=== PATIENT | male | born 1940 | race Caucasian/White ===

== ENCOUNTER → 2019-12-30 | Outpatient (CLI) | payer MEDICARE ==
[~2019-12-30] MED LIST: ALLERCLEAR10 MG PO; AMLO5 PO; Benazepril HCl40 MG PO; CEPH500 PO; FINA5 PO; LOTREL; Rapaflo8 MG PO; Vesicare10 MG PO; [UNRECOGNIZED DRUG - OTHER] PO; [UNRECOGNIZED DRUG - REMARK]
== END | disposition home or self-care (01) ==
LOC: PLD 14:57 → LAB SHORT 14:57
DX: D48.5 Neoplasm of uncertain behavior of skin (principal)
CPT/HCPCS: 88305

== ENCOUNTER 2022-12-06 10:51 | Emergency (ER) | payer MEDICARE ==
[~2022-12-06] VITALS: Ht 175.3 cm; Wt 72.6 kg
[2022-12-06 11:07] VITALS: BP 139/65
== END 2022-12-06 12:04 | disposition home or self-care (01) ==
LOC: ER 10:51
DX: M71.9 Bursopathy, unspecified (principal); I10 Essential (primary) hypertension; Z88.8 Allergy status to other drugs, medicaments and biological substances; Z79.899 Other long term (current) drug therapy
CPT/HCPCS: 73502; 96372; 99283-25; J1885

== ENCOUNTER 2022-12-31 12:00 | Observation (INO) | payer MEDICARE ==
[~2022-12-31] VITALS: Ht 172.7 cm; Wt 73.9 kg
[2022-12-31] MEDS ORDERED: ATORVASTATIN CA20 MG PO (12:25)
[2022-12-31] MEDS ORDERED: ATOR10 PO ×2 (12:25)
[2022-12-31 12:26] LABS: BASOPHILS ABSOLUTE AUTO 0.03 K/mm3 (0.00-0.23); BASOPHILS PERCENT AUTO 1 % (0-2); EOSINOPHILS PERCENT AUTO 2 % (0-6); Hematocrit 41.8 % (37.0-53.0); Hemoglobin 14.9 g/dL (13.5-17.5); IMMATURE GRAN ABSOLUTE AUTO 0.04 K/mm3 (0.00-0.10); IMMATURE GRAN PERCENT AUTO 1 % (0-1); LYMPHOCYTES ABSOLUTE AUTO 1.56 K/mm3 (0.84-5.20); LYMPHOCYTES PERCENT AUTO 25 % (21-46); MONOCYTES ABSOLUTE AUTO 0.96 K/mm3 (0.16-1.47); MONOCYTES PERCENT AUTO 15 % (4-13); Mean Corpuscular HGB Conc 35.6 g/dL (31.5-36.5); Mean Corpuscular Volume 93 fL (80-100); Mean Platelet Volume 9.7 fL (9.1-12.4); NEUTROPHILS ABSOLUTE AUTO 3.54 K/mm3 (1.96-9.15); NEUTROPHILS PERCENT AUTO 57 % (41-73); Platelet Count 176 K/mm3 (150-400); RDW Coefficient Variation 13.2 % (11.7-14.2); RDW Standard Deviation 45.1 fL (35.1-46.3); Red Blood Cell Count 4.51 M/mm3 (4.30-5.90); White Blood Cell Count 6.23 K/mm3 (4.00-11.30)
[2022-12-31] MEDS ORDERED: PLAVIX75 MG PO ×2 (12:36)
[2022-12-31 12:38] LABS: Albumin, Blood 3.5 g/dL (3.4-5.0); Albumin/Globulin Ratio 1.1 (0.8-1.8); Bun/Creatinine Ratio 25.6 (12.0-20.0); Calcium, Blood 8.6 mg/dL (8.5-10.1); Creatinine, Blood 0.78 mg/dL (0.60-1.20); Globulin, Blood 3.1 g/dL (2.2-4.0); Potassium, Blood 3.5 mmol/L (3.5-5.5); Total Protein, Blood 6.6 g/dL (6.4-8.2)
[2022-12-31 16:48] VITALS: BP 117/67
[2022-12-31] MEDS ORDERED: ERGO400 PO ×2 (17:03)
[2022-12-31] MEDS ORDERED: FISH OIL 1,2001 EAC7 PO ×2 (17:03)
[2022-12-31 17:45] LABS: Source, Urine Clean Catch
[2022-12-31 17:48] LABS: Appearance, Urine Clear (Clear); Bilirubin, Urine Neg (Neg); Blood, Urine Neg (Neg); Color, Urine Yellow (P-Yellow); Glucose Qualitative, Urine Neg (Neg); Ketones, Urine Neg (Neg); Leukocyte Esterase, Urine Neg (Neg); Nitrite, Urine Neg (Neg); Protein, Urine 1+ (Neg); Urobilinogen, Urine NORM (Normal)
[2022-12-31 18:02] LABS: U Amphetamine Screen Not Detected; U Barbituate Screen Not Detected; U Benzodiazapine Screen Not Detected; U Buprenorphine Screen Not Detected; U Cannabinoids Screen Not Detected; U Cocaine Screen Not Detected; U Methadone Screen Not Detected; U Methamphetamine Screen Not Detected; U Opiates Screen DETECTED; U Oxycodone Screen Not Detected; U Phencyclidine Screen Not Detected; U Propoxyphene Screen Not Detected
--- NOTE | 2022-12-31 18:49 | NUR ---
SHIFT SUMMARY-ADMIT ADMITTED TO THE FLOOR ABOUT 1700, IV'S IN PLACE AND SL, FORGETFUL COGNITION AT THIS TIME. CALM DEMEANOR. C/O HEADACHE, DOC ORDERED TYLENOL. FIRE SAFETY EDUCATION COMPLETE, NO SOURCES OF IGNITION VISITORS DENY THE SAME.
[2022-12-31 20:57] VITALS: BP 111/66
[2023-01-01 02:42] VITALS: BP 121/67
--- NOTE | 2023-01-01 05:29 | NUR ---
SHIFT SUMMARY PT GIVEN TYLENOL X1 FOR HEADACHE, REPORTED RELIEF WITH TYLENOL. NO SEIZURES REPORTED OR OBSERVED OVERNIGHT, PT AT BEDSIDE ENTIRE SHIFT. Q1H FIRE SAFETY CHECKS COMPLETED.
[2023-01-01 05:38] LABS: BASOPHILS ABSOLUTE AUTO 0.03 K/mm3 (0.00-0.23); BASOPHILS PERCENT AUTO 1 % (0-2); EOSINOPHILS PERCENT AUTO 2 % (0-6); Hematocrit 38.2 % (37.0-53.0); Hemoglobin 13.6 g/dL (13.5-17.5); IMMATURE GRAN ABSOLUTE AUTO 0.01 K/mm3 (0.00-0.10); IMMATURE GRAN PERCENT AUTO 0 % (0-1); LYMPHOCYTES ABSOLUTE AUTO 1.19 K/mm3 (0.84-5.20); LYMPHOCYTES PERCENT AUTO 18 % (21-46); MONOCYTES PERCENT AUTO 12 % (4-13); Mean Corpuscular HGB 33.3 pg (26.0-34.0); Mean Corpuscular HGB Conc 35.6 g/dL (31.5-36.5); Mean Corpuscular Volume 94 fL (80-100); Mean Platelet Volume 9.8 fL (9.1-12.4); NEUTROPHILS ABSOLUTE AUTO 4.49 K/mm3 (1.96-9.15); NEUTROPHILS PERCENT AUTO 68 % (41-73); Platelet Count 158 K/mm3 (150-400); RDW Coefficient Variation 13.2 % (11.7-14.2); RDW Standard Deviation 45.3 fL (35.1-46.3); Red Blood Cell Count 4.08 M/mm3 (4.30-5.90); White Blood Cell Count 6.62 K/mm3 (4.00-11.30)
[2023-01-01 06:16] LABS: Albumin, Blood 3.1 g/dL (3.4-5.0); Albumin/Globulin Ratio 1.1 (0.8-1.8); Bilirubin, Total 0.7 mg/dL (0.1-1.0); Bun/Creatinine Ratio 22.9 (12.0-20.0); Calcium, Blood 8.5 mg/dL (8.5-10.1); Creatinine, Blood 0.87 mg/dL (0.60-1.20); Globulin, Blood 2.8 g/dL (2.2-4.0); Magnesium, Blood 2.3 mg/dL (1.6-2.4); Phosphorus, Blood 3.5 mg/dL (2.5-4.9); Thyroid Stimulating Hormone 0.653 uIU/mL (0.360-4.800); Total Protein, Blood 5.9 g/dL (6.4-8.2)
--- NOTE | 2023-01-01 07:30 | NUR ---
ASSUMED CARE: PT RESTING QUIETLY IN BED. 1ST DEGREE HB AT 51 ON TELE. FAMILY AT BEDSIDE. DENIES NEEDS OR CONCERNS. DR KONG INSTRUCTED TO GET PT UP OUT OF BED AND AMBULATING AND IF PT FEELS COMFORTABLE WITH IT, CAN BE DISCHARGED LATER TODAY. PT AGREEABLE TO THIS PLAN.
[2023-01-01 07:42] VITALS: BP 125/64
--- NOTE | 2023-01-01 10:07 | NUR ---
PT'S FAMILY ASKING TO SPEAK WITH DR KONG. CALL TO DR KONG TO LET HIM KNOW THAT PT GOT UP INTO CHAIR, AMBULATED WITH WALKER SAFELY AND WITHOUT SAFETY CONCERNS. STATES HE WILL BE UP IN A FEW MINUTES TO SPEAK WITH THEM AND GET HIM DISCHARGED HOME. FAMILY AND PT AGREEABLE TO THIS PLAN
[2023-01-01] MEDS ORDERED: LEVE500 PO ×2 (10:59)
[2023-01-01] MEDS ORDERED: Sanctura20 MG PO ×2 (11:00)
--- NOTE | 2023-01-01 11:37 | NUR ---
DISCHARGE: PT GIVEN INSTRUCTIONS REGARDING NO DRIVING, TO SET UP FOLLOW UP APPOINTMENT WITH PCP AND TO ASK PCP ABOUT NEUROLOGY F/U. IVS DC'D WNL. DENIED FURTHER QUESTION OR CONCERNS. ESCORTED OUT VIA WHEEL CHAIR BY HOSPITAL STAFF
[2023-01-12] MEDS ORDERED: HYDR1TAB94 PO (12:33)
[2023-01-13] MEDS ORDERED: ATOR40TA PO (09:33)
== END 2023-01-01 11:35 | disposition home or self-care (01) ==
LOC: ER 12:00 → SURS 14:32 → MEDS 16:41 → ENPENDDIS 01-01 11:07 → MEDS 01-01 11:35
PROVIDERS: Emergency Medicine; ADMIT Family Medicine
DX: R56.9 Unspecified convulsions (principal); I10 Essential (primary) hypertension; N40.0 Benign prostatic hyperplasia without lower urinary tract symptoms; E78.5 Hyperlipidemia, unspecified; Z88.2 Allergy status to sulfonamides; Z88.6 Allergy status to analgesic agent; Z79.899 Other long term (current) drug therapy
CPT/HCPCS: 36415; 70450; 80053; 82533; 82947; 83735; 84100; 84443; 84484; 85025; 93005; 93010; 96365; 96372; 96375; 99285-25; A9270; G0378; J1650; J1953; J2405

== ENCOUNTER 2023-01-08 11:58 | Emergency (ER) | payer MEDICARE ==
[~2023-01-08] VITALS: Ht 175.3 cm; Wt 72.6 kg
[~2023-01-08 11:58] MED LIST changes: +ATOR10 PO; +ATORVASTATIN CA20 MG PO; +ERGO400 PO; +FISH OIL 1,2001 EAC7 PO; +LEVE500 PO; +PLAVIX75 MG PO; +Sanctura20 MG PO
[2023-01-08 14:52] LABS: BASOPHILS ABSOLUTE AUTO 0.03 K/mm3 (0.00-0.23); BASOPHILS PERCENT AUTO 0 % (0-2); EOSINOPHILS ABSOLUTE AUTO 0.12 K/mm3 (0.00-0.68); EOSINOPHILS PERCENT AUTO 1 % (0-6); Hematocrit 38.9 % (37.0-53.0); IMMATURE GRAN ABSOLUTE AUTO 0.02 K/mm3 (0.00-0.10); IMMATURE GRAN PERCENT AUTO 0 % (0-1); LYMPHOCYTES ABSOLUTE AUTO 0.92 K/mm3 (0.84-5.20); LYMPHOCYTES PERCENT AUTO 11 % (21-46); MONOCYTES ABSOLUTE AUTO 1.24 K/mm3 (0.16-1.47); MONOCYTES PERCENT AUTO 15 % (4-13); Mean Corpuscular Volume 94 fL (80-100); Mean Platelet Volume 9.5 fL (9.1-12.4); NEUTROPHILS ABSOLUTE AUTO 6.02 K/mm3 (1.96-9.15); NEUTROPHILS PERCENT AUTO 72 % (41-73); Platelet Count 144 K/mm3 (150-400); RDW Standard Deviation 47.9 fL (35.1-46.3); Red Blood Cell Count 4.12 M/mm3 (4.30-5.90); White Blood Cell Count 8.35 K/mm3 (4.00-11.30)
[2023-01-08 15:07] LABS: Albumin, Blood 3.2 g/dL (3.4-5.0); Albumin/Globulin Ratio 1.1 (0.8-1.8); Bun/Creatinine Ratio 19.6 (12.0-20.0); Calcium, Blood 8.4 mg/dL (8.5-10.1); Creatinine, Blood 0.87 mg/dL (0.60-1.20); Potassium, Blood 4.5 mmol/L (3.5-5.5); Total Protein, Blood 6.2 g/dL (6.4-8.2)
[2023-01-08 15:15] VITALS: BP 142/68
[2023-01-08] MEDS ORDERED: Prednisone10 MG PO (17:40)
[2023-01-12] MEDS ORDERED: HYDR1TAB94 PO (12:33)
[2023-01-13] MEDS ORDERED: ATOR40TA PO (09:33)
== END 2023-01-08 18:16 | disposition home or self-care (01) ==
LOC: ER 11:58
PROVIDERS: Emergency Medicine
DX: M51.26 Other intervertebral disc displacement, lumbar region (principal); R20.2 Paresthesia of skin; I10 Essential (primary) hypertension; N40.1 Benign prostatic hyperplasia with lower urinary tract symptoms; R33.8 Other retention of urine; K59.89 Other specified functional intestinal disorders; E78.5 Hyperlipidemia, unspecified; Z88.8 Allergy status to other drugs, medicaments and biological substances; Z79.899 Other long term (current) drug therapy; Z79.02 Long term (current) use of antithrombotics/antiplatelets
CPT/HCPCS: 72158; 74018; 80053; 85025; 99284-25; A9579; J7512

== ENCOUNTER 2023-01-12 03:50 | Inpatient (IN) | payer MEDICARE | END 2023-01-13 10:46 | disposition home or self-care (01) | DRG 65 | LOC: ER 03:50 → ERHOLD 03:51 → ICUE 09:15 | PROVIDERS: ADMIT Internal Medicine | DX: I63.9 Cerebral infarction, unspecified (principal); G81.94 Hemiplegia, unspecified affecting left nondominant side; I62.9 Nontraumatic intracranial hemorrhage, unspecified; R56.9 Unspecified convulsions; I10 Essential (primary) hypertension; E78.5 Hyperlipidemia, unspecified; N40.0 Benign prostatic hyperplasia without lower urinary tract symptoms; R47.81 Slurred speech; M19.90 Unspecified osteoarthritis, unspecified site; Z88.8 Allergy status to other drugs, medicaments and biological substances; Z79.899 Other long term (current) drug therapy; Z88.6 Allergy status to analgesic agent; Z90.89 Acquired absence of other organs; Z98.890 Other specified postprocedural states; Z98.52 Vasectomy status ==

== ENCOUNTER 2023-01-18 18:41 | Emergency (ER) | payer MEDICARE ==
[~2023-01-18] VITALS: Ht 182.9 cm; Wt 73.9 kg
[~2023-01-18 18:41] MED LIST changes: +ATOR40TA PO; +HYDR1TAB94 PO; +Prednisone10 MG PO
[2023-01-18 19:09] LABS: BASOPHILS ABSOLUTE AUTO 0.04 K/mm3 (0.00-0.23); BASOPHILS PERCENT AUTO 1 % (0-2); EOSINOPHILS ABSOLUTE AUTO 0.12 K/mm3 (0.00-0.68); EOSINOPHILS PERCENT AUTO 2 % (0-6); Hematocrit 38.6 % (37.0-53.0); Hemoglobin 13.6 g/dL (13.5-17.5); IMMATURE GRAN ABSOLUTE AUTO 0.02 K/mm3 (0.00-0.10); IMMATURE GRAN PERCENT AUTO 0 % (0-1); LYMPHOCYTES ABSOLUTE AUTO 1.14 K/mm3 (0.84-5.20); LYMPHOCYTES PERCENT AUTO 15 % (21-46); MONOCYTES ABSOLUTE AUTO 1.03 K/mm3 (0.16-1.47); MONOCYTES PERCENT AUTO 13 % (4-13); Mean Corpuscular HGB 33.3 pg (26.0-34.0); Mean Corpuscular HGB Conc 35.2 g/dL (31.5-36.5); Mean Corpuscular Volume 94 fL (80-100); Mean Platelet Volume 9.5 fL (9.1-12.4); NEUTROPHILS ABSOLUTE AUTO 5.47 K/mm3 (1.96-9.15); NEUTROPHILS PERCENT AUTO 70 % (41-73); Platelet Count 171 K/mm3 (150-400); RDW Coefficient Variation 13.9 % (11.7-14.2); Red Blood Cell Count 4.09 M/mm3 (4.30-5.90); White Blood Cell Count 7.82 K/mm3 (4.00-11.30)
[2023-01-18 19:41] LABS: Albumin, Blood 3.4 g/dL (3.4-5.0); Albumin/Globulin Ratio 1.1 (0.8-1.8); Bilirubin, Total 0.9 mg/dL (0.1-1.0); Calcium, Blood 8.7 mg/dL (8.5-10.1); Creatinine, Blood 0.86 mg/dL (0.60-1.20); Potassium, Blood 4.3 mmol/L (3.5-5.5); Total Protein, Blood 6.4 g/dL (6.4-8.2)
[2023-01-18 20:41] LABS: Magnesium, Blood 2.4 mg/dL (1.6-2.4)
[2023-01-18 21:10] LABS: Source, Urine Clean Catch
[2023-01-18 21:14] LABS: Appearance, Urine Hazy (Clear); Bilirubin, Urine Neg (Neg); Blood, Urine Neg (Neg); Color, Urine Yellow (P-Yellow); Glucose Qualitative, Urine Neg (Neg); Ketones, Urine Neg (Neg); Leukocyte Esterase, Urine Neg (Neg); Nitrite, Urine Neg (Neg); Protein, Urine Neg (Neg); Specific Gravity, Urine 1.015 (1.003-1.022); Urobilinogen, Urine NORM (Normal); pH, Urine 6.5 (5.0-8.0)
[2023-01-18 21:42] LABS: Bacteria Many /hpf; Red Blood Cells, Urine 0-2 /hpf (0-2); Squamous Epithelial Cells Not Seen /hpf (Few)
[2023-01-18 22:25] VITALS: BP 132/75
[2023-01-18] MEDS ORDERED: CEPH500 PO (22:46)
== END 2023-01-18 23:10 | disposition home or self-care (01) ==
LOC: ER 18:41
PROVIDERS: Physician Assistant; Student in an Organized Health Care Education/Training Program
DX: R47.81 Slurred speech (principal); N39.0 Urinary tract infection, site not specified; Z88.6 Allergy status to analgesic agent; Z88.8 Allergy status to other drugs, medicaments and biological substances; Z79.899 Other long term (current) drug therapy; I10 Essential (primary) hypertension; E78.5 Hyperlipidemia, unspecified; M19.90 Unspecified osteoarthritis, unspecified site
CPT/HCPCS: 70450; 80053; 81001; 83735; 85025; 87086; 93005; 93010; 96365; 99285-25; J0696

== ENCOUNTER 2023-01-22 15:21 | Inpatient (IN) | payer MEDICARE ==
[~2023-01-22] VITALS: Ht 172.7 cm; Wt 71.2 kg
[2023-01-22 16:24] LABS: Albumin, Blood 3.8 g/dL (3.4-5.0); Albumin/Globulin Ratio 1.2 (0.8-1.8); Bilirubin, Total 1.2 mg/dL (0.1-1.0); Bun/Creatinine Ratio 18.7 (12.0-20.0); Calcium, Blood 8.9 mg/dL (8.5-10.1); Creatinine, Blood 0.96 mg/dL (0.60-1.20); Globulin, Blood 3.1 g/dL (2.2-4.0); Potassium, Blood 4.6 mmol/L (3.5-5.5); Total Protein, Blood 6.9 g/dL (6.4-8.2)
[2023-01-22 16:24] LABS: BASOPHILS ABSOLUTE AUTO 0.04 K/mm3 (0.00-0.23); BASOPHILS PERCENT AUTO 1 % (0-2); EOSINOPHILS ABSOLUTE AUTO 0.09 K/mm3 (0.00-0.68); EOSINOPHILS PERCENT AUTO 2 % (0-6); Hematocrit 35.2 % (37.0-53.0); Hemoglobin 12.7 g/dL (13.5-17.5); IMMATURE GRAN ABSOLUTE AUTO 0.01 K/mm3 (0.00-0.10); IMMATURE GRAN PERCENT AUTO 0 % (0-1); LYMPHOCYTES ABSOLUTE AUTO 0.96 K/mm3 (0.84-5.20); LYMPHOCYTES PERCENT AUTO 16 % (21-46); MONOCYTES ABSOLUTE AUTO 1.11 K/mm3 (0.16-1.47); MONOCYTES PERCENT AUTO 19 % (4-13); Mean Corpuscular HGB 33.9 pg (26.0-34.0); Mean Corpuscular HGB Conc 36.1 g/dL (31.5-36.5); Mean Corpuscular Volume 94 fL (80-100); Mean Platelet Volume 9.6 fL (9.1-12.4); NEUTROPHILS ABSOLUTE AUTO 3.73 K/mm3 (1.96-9.15); NEUTROPHILS PERCENT AUTO 63 % (41-73); Platelet Count 168 K/mm3 (150-400); RDW Coefficient Variation 14.2 % (11.7-14.2); RDW Standard Deviation 47.5 fL (35.1-46.3); Red Blood Cell Count 3.75 M/mm3 (4.30-5.90); White Blood Cell Count 5.94 K/mm3 (4.00-11.30)
[2023-01-23] VITALS (38 sets, daily range): BP systolic 121–168; BP diastolic 63–93
[2023-01-23 00:01] LABS: International Normalized Ratio 1.19; Prothrombin Time Results 12.4 Sec (9.7-11.5)
--- NOTE | 2023-01-23 02:50 | NUR ---
ARRIVAL TO ICU PT [facility] PT ALERT, TRACKING STAFF AND FOLLOWING MOST COMMANDS. PT UNABLE TO ANSWER ORIENTATION QUESTIONS D/T WORD SALAD. THIS RN ABLE TO UNDERSTAND APPROX 1 OUT OF 10 WORDS. EQUAL STRENGTH IN BILATERAL EXTREMITIES. NO FACIAL DROP NOTED. VSS. ON RA. SR RATE 60'S. GOAL SBP UNDER 150'S. RIGHT LEG NOTED TO COOLER THEN LEFT WITH FAINT PULSES. HOSP CALLED AND ORDERS RECEIVED FOR VENOUS DUPLEX IN AM. PT SUDDENLY STARTED MOANING AND STATED 'HELP'. PT ATTEMPTING TO PULL PANTS DOWN AND WAS ABLE TO VOID 20MLS URINE. POST VOID SCAN 267MLS. PT CALMED AFTER VOIDED. BED ALARM ON. CALL LIGHT IN REACH.
[2023-01-23 04:21] LABS: BASOPHILS ABSOLUTE AUTO 0.03 K/mm3 (0.00-0.23); BASOPHILS PERCENT AUTO 0 % (0-2); EOSINOPHILS ABSOLUTE AUTO 0.05 K/mm3 (0.00-0.68); EOSINOPHILS PERCENT AUTO 1 % (0-6); Hematocrit 39.7 % (37.0-53.0); Hemoglobin 14.3 g/dL (13.5-17.5); IMMATURE GRAN ABSOLUTE AUTO 0.03 K/mm3 (0.00-0.10); IMMATURE GRAN PERCENT AUTO 0 % (0-1); LYMPHOCYTES ABSOLUTE AUTO 0.99 K/mm3 (0.84-5.20); LYMPHOCYTES PERCENT AUTO 12 % (21-46); MONOCYTES ABSOLUTE AUTO 1.15 K/mm3 (0.16-1.47); MONOCYTES PERCENT AUTO 14 % (4-13); Mean Corpuscular HGB 33.3 pg (26.0-34.0); Mean Corpuscular Volume 93 fL (80-100); Mean Platelet Volume 9.8 fL (9.1-12.4); NEUTROPHILS PERCENT AUTO 73 % (41-73); Platelet Count 192 K/mm3 (150-400); RDW Coefficient Variation 13.8 % (11.7-14.2); RDW Standard Deviation 46.5 fL (35.1-46.3); Red Blood Cell Count 4.29 M/mm3 (4.30-5.90); White Blood Cell Count 8.25 K/mm3 (4.00-11.30)
[2023-01-23 04:49] LABS: Albumin, Blood 3.4 g/dL (3.4-5.0); Bilirubin, Total 1.5 mg/dL (0.1-1.0); Bun/Creatinine Ratio 15.2 (12.0-20.0); Calcium, Blood 8.7 mg/dL (8.5-10.1); Creatinine, Blood 0.79 mg/dL (0.60-1.20); Globulin, Blood 3.3 g/dL (2.2-4.0); Potassium, Blood 3.9 mmol/L (3.5-5.5); Total Protein, Blood 6.7 g/dL (6.4-8.2)
--- NOTE | 2023-01-23 06:23 | NUR ---
SHIFT SUMMARY NO ACUTE EVENTS T/O NIGHT. PT REMAINS ALERT AND COOPERATIVE WITH CARE. PT IS ABLE TO SPEAK A BIT CLEARER THIS AM. ABLE TO SAY YES, NO, AND OKAY. NO OTHER NEURO CHANGES NOTED. VSS. HAS NOT REQUIRED ANY PRN HTN MEDICATIONS. PT WAS INCONT OF URINE X 1 THIS AM. ABLE TO TURN SELF [id number] AND UP IN BED WITH PROMPTING. BED ALARM REMAINS ON. CALL LIGHT IN REACH. WILL REPORT OFF TO ONCOMING RN.
--- NOTE | 2023-01-23 08:53 | NUR ---
CARE OF PT ASSUMED AT 0700. PT RESTING IN BED, AWAKE. ABLE TO STATE NAME IF GIVEN TIME. UNABLE TO STATE WHERE HE IS AT. SOME MILD SLURRED SPEECH NOTED AT TIMES. PT IS ABLE TO FORM SOME SENTANCES THAT ARE MORE CLEAR AND APPROPRIATE. PT ASKED IF HE WAS GOING HOME. PT DOES APPEAR CONFUSED, ATTEMPTING TO GET OUT OF BED SEVERAL TIMES WITHIN MINUTES. PT ABLE TO FOLLOW DIRECTIONS BUT IS DELAYED IN RESPONSE TIME. PT IS STRONG/EQUAL TO ALL EXTREMITIES. SMILE IS SYMMETRICAL, PUPILS 3/3MM EQUAL AND REACTIVE. PT'S AT BEDSIDE.
--- NOTE | 2023-01-23 09:09 | NUR ---
PT USING WORD SALAD TO COMMUNICATE SOMETHING URGENTLY. WHEN I ASKED IF HE NEEDED TO USE THE RESTROOM HE STATED CLEARLY, "YOU BET I DO, THANK YOU SO MUCH". PT ASSISTED W URINAL.
--- NOTE | 2023-01-23 10:23 | NUR ---
DR KONG IN TO SEE PT. 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 SBA TO BATHROOM FOR XLARGE BM.
--- NOTE | 2023-01-23 11:49 | NUR ---
PT USED CALL LIGHT APPROPRIATELY, AND ALTHOUGH THE PT STILL HAS WORD SALAD/EXPRESSIVE APHAGIA HE WAS ABLE TO CONVEY THAT HE NEEDED TO USE THE URINAL.
--- NOTE | 2023-01-23 14:00 | NUR ---
DR MARIE SPOKE WITH NEUROLOGIST AT [facility], THEY WILL NOT BE ACCEPTING PATIENT AT THIS TIME PATIENT DOES NOT REQUIRE HIGHER LEVEL OF CARE. PT MEDICAL STATUS W TELE. SPEECH ORDERED. DR MARIE IS SPEAKING WITH FAMILY NOW TO GIVE THEM AN UPDATE.
--- NOTE | 2023-01-23 17:39 | NUR ---
STOCK BUYER TRANSFERED PT UP TO ROOM 345 IN STABLE CONDITION VIA WHEELCHAIR. WALKED UP W PT. NO CHANGE IN NEURO ASSESSMENT THIS SHIFT.
[2023-01-24 05:20] VITALS: BP 101/65
--- NOTE | 2023-01-24 05:21 | NUR ---
SHIFT SUMMARY PATIENT ALERT, WORD SALAD WHEN ATTEMPTING VERBAL COMMUNICATION. FOLLOWS MOST COMMANDS. UP SBA TO BR, PATIENT STRONG BUT GAIT A LITTLE UNSTEADY. MUSICAL ENGINEER EQUAL. IMPULSIVE AT TIMES, BED ALARM ON. PATIENT NPO PENDING SPEECH EVAL. PLEASANT AND COOPERATIVE WITH CARE.
[2023-01-24 10:03] VITALS: BP 113/69
--- NOTE | 2023-01-24 13:56 | NUR ---
Spoke with Dr Esteban Womack and discussed case. Family appeared to be a little apprhensive regarding D/C plan and Pt's wishes regarding code status. Pt resting in bed with his eyes closed. Pt appears comfortable with no S/S of distress at this time. Pt remains with his eyes closed throughout visit. Pt's spouse Luna at bedside. Engaged in therapeutic conversation and supportive listening. Discussed potential D/C plan with spouse. Luna appears to have processes information and a little more comfortable with plan. Engaged in gentle discussion regarding advanced care planning and planning for the future. Educated on disease process and the potential need to have caregiver support for Pt in the future. Spouse reports already has started planning. Discussed Pt's code status wishes as Pt indicated to staff earlier wishes of DNR. Spouse confirms Pt's wishes for DNR and states attempting to convince Pt in completing advanced directive in the past. Continued therapeutic listening. Placed JEANINE order for Pt in [place] per V/O from Dr Orellana. Plan: F/U with Pt when he is awake to discuss completing POLST. Palliative Care will remain available
--- NOTE | 2023-01-24 16:02 | NUR ---
DAYSHIFT SUMMARY Patient alert x oriented 2-3, difficulty expressing self, word salad. SHAKE SPLITTER evaluated patient & ordered puree diet & precaution orders. Patient worked with PT/OT today, did very well ambulating will FWW, therapy recommending DC home. Barium swallow planned for the afternoon, SHAKE SPLITTER call & reported change in condition, patient unable to swallow now. MD notified, instructed to do neuro checks Q2H for 6 hours. SHAKE SPLITTER & pallaliative care met with patient and family. Patient will remain in hospital overnight. [facility] came and applied zio patch, continous telemetry in place. No events this shift. Plan to DC home with the Zio patch for 30 days per neurology. Vitals stable, Will continue plan of care.
[2023-01-24 16:04] VITALS: BP 104/67
--- NOTE | 2023-01-24 16:49 | NUR ---
Joint visit this afternoon with [facility] and this RN with Pt. Spouse and daughter at bedside. [facility] discusses findings with Pt and family. Pt is recommended NPO at this time. Questions answered and therapeutic listening offered. Discussed potential options of alternate nutrition if NPO status continues to be recommended. Discussed the importance of planning for the future based off Pt's goals and values. Pt attempts to respond to the conversation and struggles with making sense. Pt also attempts to write his responses with gibberish writing. Continued therapeutic conversations. Family expresses appreciation and report no other concerns at this time. Palliative Care will remain available
--- NOTE | 2023-01-24 18:44 | NUR ---
Neuro checks: pupils equal and reactive, follows direction, no facial dropping noted. Speech continues to be garbled, unable to understand what patient is saying. ROM WNL, minimal assitance with ambulation, uses FWW, needs redirection at times for safety.
[2023-01-24 21:28] VITALS: BP 114/71
--- NOTE | 2023-01-25 02:22 | NUR ---
END OF SHIFT SUMMARY PT WEAK AND UNSTEADY WITH TRANSFERS ON NOC SHIFT, FWW AND GB FOR SAFETY. PT A&O x1, TO SELF. SCHEDULED KEPPRA IV ADMINISTERED. PT'S SPEECH DIFFICULT TO UNDERSTAND, USED PEN AND PAPER TO COMMUNICATE WITH PT. NO C/O PAIN. BED IN LOWEST POSITION, BED ALARM ON PT IS IMPULSIVE AND TRIED TO GET OUT OF BED ON HIS OWN. CALL LIGHT WITHIN REACH, [facility].
[2023-01-25] MEDS ORDERED: Sanctura20 MG PO (03:33)
[2023-01-25 05:30] VITALS: BP 104/88
[2023-01-25 08:07] VITALS: BP 96/65
--- NOTE | 2023-01-25 10:15 | NUR ---
Pt sitting in recliner chair upon arrival. Pt's spouse Luna at bedside. Initially Pt is a little more clear with verbal responses. 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 Pt appears to be agreeable to NG tube but as conversation continued his speach became more unclear. Unsure of his wishes are for PEG tube. He appeared to be inquiring about how long he would need a PEG tube. Instructed length of time is pending progression of rehabilitation with ST. Family will continue conversation after Pt has oppurtunity to rest. Spoke with Primary RN Lois and discussed case. Palliative Care will remain available
--- NOTE | 2023-01-25 14:37 | NUR ---
Spoke with Dr Orellana and discussed case. Pt and family may benefit from assistance with completing POLST today. Pt resting in bed upon arrival. Pt's spouse Luna, son Cesar, and daughter Vj at bedside. Engaged in therapeutic conversation regarding completing POLST. Educated on life sustaining measures including risks and implications to CPR. Pt appears confused and does not respond regarding topic of POLST and code status. He instead attempts conversation regarding [place] and [facility] but most of his speech is mumbled and non sensical. Family reports not being confident in his understanding today and yesterday's conversation with staff regarding his code status wishes. They agree Pt should be changed back to Full Code until confusion has cleared. Ended visit. Spoke with RN Tire Manager Lisandra and discussed case. Placed order for Pt in [place] for Full Code per V/O from Dr Orellana. Palliative Care will remain available
[2023-01-25 15:12] LABS: BASOPHILS ABSOLUTE AUTO 0.03 K/mm3 (0.00-0.23); BASOPHILS PERCENT AUTO 1 % (0-2); EOSINOPHILS ABSOLUTE AUTO 0.07 K/mm3 (0.00-0.68); EOSINOPHILS PERCENT AUTO 1 % (0-6); Hematocrit 37.1 % (37.0-53.0); Hemoglobin 13.8 g/dL (13.5-17.5); IMMATURE GRAN ABSOLUTE AUTO 0.02 K/mm3 (0.00-0.10); IMMATURE GRAN PERCENT AUTO 0 % (0-1); LYMPHOCYTES PERCENT AUTO 15 % (21-46); MONOCYTES ABSOLUTE AUTO 1.25 K/mm3 (0.16-1.47); MONOCYTES PERCENT AUTO 19 % (4-13); Mean Corpuscular HGB 34.1 pg (26.0-34.0); Mean Corpuscular HGB Conc 37.2 g/dL (31.5-36.5); Mean Corpuscular Volume 92 fL (80-100); Mean Platelet Volume 9.5 fL (9.1-12.4); NEUTROPHILS ABSOLUTE AUTO 4.12 K/mm3 (1.96-9.15); NEUTROPHILS PERCENT AUTO 63 % (41-73); Platelet Count 190 K/mm3 (150-400); RDW Coefficient Variation 14.5 % (11.7-14.2); RDW Standard Deviation 47.8 fL (35.1-46.3); Red Blood Cell Count 4.05 M/mm3 (4.30-5.90); White Blood Cell Count 6.49 K/mm3 (4.00-11.30)
[2023-01-25 15:35] LABS: Albumin, Blood 3.2 g/dL (3.4-5.0); Albumin/Globulin Ratio 1.1 (0.8-1.8); Bilirubin, Total 1.6 mg/dL (0.1-1.0); Bun/Creatinine Ratio 25.7 (12.0-20.0); Calcium, Blood 8.5 mg/dL (8.5-10.1); Creatinine, Blood 0.86 mg/dL (0.60-1.20); Potassium, Blood 3.8 mmol/L (3.5-5.5); Total Protein, Blood 6.2 g/dL (6.4-8.2)
[2023-01-25 16:26] VITALS: BP 120/72
--- NOTE | 2023-01-25 17:51 | NUR ---
DAYSHIFT SUMMARY Patient alert & oriented x3, continues to have difficulty with verbal communication, he is able to make eye contact, follows commands. Palliative care at bedside discussing care with family, patients son is at bedside today, family discussion involved changing POLST from DNR back to Full code status. Plan is to insert Dobhoff tube for enteral nutrition. Tube inserted taped at 57in. verified placement with chest xray. Dietitian spoke with patient & ordered tube feedings. SENIOR TECHNICAL TRAINER assessed patient at bedside, no changes in plan, continue NPO. Plan is to administred feeds, and reevaluate swallowing in a few days. Patient calling appropriate, waiting for staff before getting OOB to walk to BR. No impulsive behavior this shift. Vitals stable. Will continue plan of care.
--- NOTE | 2023-01-26 00:04 | NUR ---
PT PULLED OUT DOBHOFF, PROVIDER NOTIFIED, ORDERS FOR IV FLUIDS STARTED, CONTINUE POC
[2023-01-26 03:03] VITALS: BP 105/67
--- NOTE | 2023-01-26 05:05 | NUR ---
SHIFT SUMMARY PT IS A&O3 FORGETFUL AND IMPULSIVE OVERNIGHT ATTEMPTING TO OOB UNSAFELY, PT IS REDIRECTABLE, APHASIA AND WORD SALAD STILL PRESENT DURING ASSESSMENT, PT PULLED OUT DOBHOFF THIS SHIFT PROVIDER NOTIFIED, ORDERS TO START IV FLUIDS AND WAIT FOR DAY TEAM, NO COMPLAINTS OF PAIN OR DISCOMFORT, CONTINUE POC
[2023-01-26 06:06] LABS: Calcium, Blood 8.3 mg/dL (8.5-10.1); Creatinine, Blood 0.83 mg/dL (0.60-1.20); Magnesium, Blood 2.3 mg/dL (1.6-2.4); Phosphorus, Blood 3.8 mg/dL (2.5-4.9); Potassium, Blood 3.7 mmol/L (3.5-5.5)
[2023-01-26 08:11] VITALS: BP 110/67
[2023-01-26 14:33] LABS: BASOPHILS ABSOLUTE AUTO 0.02 K/mm3 (0.00-0.23); BASOPHILS PERCENT AUTO 0 % (0-2); EOSINOPHILS PERCENT AUTO 2 % (0-6); Hematocrit 39.5 % (37.0-53.0); Hemoglobin 14.6 g/dL (13.5-17.5); IMMATURE GRAN ABSOLUTE AUTO 0.01 K/mm3 (0.00-0.10); IMMATURE GRAN PERCENT AUTO 0 % (0-1); LYMPHOCYTES ABSOLUTE AUTO 1.07 K/mm3 (0.84-5.20); LYMPHOCYTES PERCENT AUTO 19 % (21-46); MONOCYTES ABSOLUTE AUTO 1.01 K/mm3 (0.16-1.47); MONOCYTES PERCENT AUTO 18 % (4-13); Mean Corpuscular HGB 33.6 pg (26.0-34.0); Mean Corpuscular Volume 91 fL (80-100); Mean Platelet Volume 9.3 fL (9.1-12.4); NEUTROPHILS ABSOLUTE AUTO 3.34 K/mm3 (1.96-9.15); NEUTROPHILS PERCENT AUTO 60 % (41-73); Platelet Count 182 K/mm3 (150-400); RDW Coefficient Variation 14.5 % (11.7-14.2); Red Blood Cell Count 4.34 M/mm3 (4.30-5.90); White Blood Cell Count 5.55 K/mm3 (4.00-11.30)
[2023-01-26 15:05] VITALS: BP 115/74
[2023-01-26 15:06] LABS: Albumin, Blood 3.2 g/dL (3.4-5.0); Bilirubin, Total 1.3 mg/dL (0.1-1.0); Bun/Creatinine Ratio 21.1 (12.0-20.0); Calcium, Blood 8.3 mg/dL (8.5-10.1); Creatinine, Blood 0.81 mg/dL (0.60-1.20); Globulin, Blood 3.2 g/dL (2.2-4.0); Total Protein, Blood 6.4 g/dL (6.4-8.2)
--- NOTE | 2023-01-26 15:13 | NUR ---
01/26/[address] SNEED; SEE ANESTHESIA RECORDS.
[2023-01-26 16:35] VITALS: BP 128/79
[2023-01-26 17:12] VITALS: BP 136/73
--- NOTE | 2023-01-26 19:07 | NUR ---
SHIFT SUMMARY: PT A&O X4. PT PLEASANT AND COOPERATIVE WITH ALL CARE. PT HAD WORD SALAD FIRST FEW HOURS OF SHIFT. ABOUT MID SHIFT PT STARTED MAKING SENSE OF WORDS AND ABLE TO HAVE APPROPRIATE CONVERSATION WITH HIM, HIS , AND DAUGHTER. PT WORKED WITH PT/OT/ST TODAY. PT SIGNIFICANTLY IMPROVED WITH ALL THERAPIES. PT RECEIVED PEG TUBE THIS SHIFT. FEEDINGS TO BE STARTED AT 0800 TOMORROW. NO C/O PAIN OR N/V. BILAT ARM IV'S BAD THIS SHIFT. NEW IV PLACED BY DAY SURGERY. IN LFA. PT IS CALLING APPROPRIATELY FOR ALL NEEDS. PT APPEARS TO BE SIGNIFICANTLY IMPROVING. CALL LIGHT IN REACH. BED IN LOWEST POSITION. REPORT GIVEN TO ONCOMING RN.
[2023-01-26 19:40] VITALS: BP 148/98
[2023-01-27 03:30] VITALS: BP 123/70
--- NOTE | 2023-01-27 05:49 | NUR ---
PT IS A&O2-3, CONFUSED BUT REORIENTABLE, PEG TUBE DRESSING CDI, RA, VSS, PT IMPULSIVE AT TIMES TRYING TO OOB WITHOUT CALLING FOR HELP, IV FLUIDS INFUSING, PT STILL EXPERIENCING APHASIA AND WORD SALAD, PEG TUBE FEEDING TO START TODAY, NO ACUTE OVERNIGHT EVENTS, CONTINUE POC
[2023-01-27 07:09] VITALS: BP 111/74
[2023-01-27 15:12] VITALS: BP 117/72
[2023-01-27 15:20] LABS: BASOPHILS ABSOLUTE AUTO 0.03 K/mm3 (0.00-0.23); BASOPHILS PERCENT AUTO 1 % (0-2); EOSINOPHILS ABSOLUTE AUTO 0.11 K/mm3 (0.00-0.68); EOSINOPHILS PERCENT AUTO 2 % (0-6); Hematocrit 34.3 % (37.0-53.0); Hemoglobin 12.7 g/dL (13.5-17.5); IMMATURE GRAN ABSOLUTE AUTO 0.04 K/mm3 (0.00-0.10); IMMATURE GRAN PERCENT AUTO 1 % (0-1); LYMPHOCYTES ABSOLUTE AUTO 1.06 K/mm3 (0.84-5.20); LYMPHOCYTES PERCENT AUTO 16 % (21-46); MONOCYTES ABSOLUTE AUTO 0.94 K/mm3 (0.16-1.47); MONOCYTES PERCENT AUTO 15 % (4-13); Mean Corpuscular HGB 33.4 pg (26.0-34.0); Mean Corpuscular Volume 90 fL (80-100); Mean Platelet Volume 9.3 fL (9.1-12.4); NEUTROPHILS ABSOLUTE AUTO 4.31 K/mm3 (1.96-9.15); NEUTROPHILS PERCENT AUTO 66 % (41-73); Platelet Count 166 K/mm3 (150-400); RDW Coefficient Variation 14.3 % (11.7-14.2); RDW Standard Deviation 47.3 fL (35.1-46.3); White Blood Cell Count 6.49 K/mm3 (4.00-11.30)
[2023-01-27 15:36] LABS: Albumin, Blood 2.9 g/dL (3.4-5.0); Bilirubin, Total 1.2 mg/dL (0.1-1.0); Bun/Creatinine Ratio 13.7 (12.0-20.0); Calcium, Blood 8.4 mg/dL (8.5-10.1); Creatinine, Blood 0.73 mg/dL (0.60-1.20); Globulin, Blood 2.9 g/dL (2.2-4.0); Potassium, Blood 3.4 mmol/L (3.5-5.5); Total Protein, Blood 5.8 g/dL (6.4-8.2)
--- NOTE | 2023-01-27 16:06 | NUR ---
Spiritual Care Visit. Pt. is awake in bed. Spouse is present and welcomes my visit. Pt. has a difficult time speaking because of his condition. Facilitate a life review using the spouse to communicate. Pt. is pleasant. Establish rapport using common community connections. Pt. displays evidence of engagement and awareness. Prayed for Pt. Pt. (nonverbally) and spouse (verbally) communicate gratitude for the spiritual care visit.
--- NOTE | 2023-01-27 17:02 | NUR ---
SHIFT SUMMARY: PT A&O X3 THIS SHIFT. PT NOT CLEAR OF SPEECH PREVIOUS DAY SHIFT BUT IS ABLE TO COMMUNICATE NEEDS VERBALLY AND USES CALL LIGHT APPROPRIATELY. PT GIVEN WHITE BOARD AND MARKER THIS AM WHICH WAS ABLE TO HELP COMMUNICATE W/FAMILY. PT WALKED WITH THIS RN TWICE AROUND MEDICAL FLOOR W/ WALKER AND GB W/O COMPLICATIONS. PT AND FAMILY APPRECIATIVE OF WALK. CONTINUOUS FEED STARTED THROUGH PEG TUBE THIS AM STARTING @20ML/HR. PT TOLERATED FEEDING WELL. FEEDING CURRENTLY AT A RATE OF 35ML/HR AND WILL INCREASE THOUGHOUT THE EVENING IF ABLE TO CONTINUE TOLERATING. Q4 FEEDINGS TO START TOMORROW @0800. PER DIETARY, RECOMMEND STOP CONTINUOUS FLUIDS AT THIS POINT DUE TO FLUSHES W/FEEDINGS. CALL LIGHT IN REACH. BED IN LOWEST POSITION. WILL CONTINUE TO MONITOR.
[2023-01-27 20:09] VITALS: BP 125/71
--- NOTE | 2023-01-28 00:07 | NUR ---
IMAGES PUSHED TO [facility] PER DR NUNEZ REQUEST- NURSE NOTIFY WAS PLACED THIS AFTERNOON TO SEND RECORDS TO [facility], CHECKED WITH IMAGING AND THAT HAD NOT BEEN COMPLETED YET, THEY STATED THEY WILL PUSH IMAGES NOW.
--- NOTE | 2023-01-28 04:57 | NUR ---
SHIFT SUMMARY- PT ALERT AND ORIENTED TO SELF PLACE, SITUATION AND PERSON. HE CALLS APPROPRIATELY. 1PA TO THE BATHROOM. CONTINUIOUS TUBE FEEDING WAS STARTED AROUND NOON YESTERDAY, PT TITRATED UP TO GOAL RATE 55ML/HR. PER ORDER PT TO SWITCH TO BOLUS FEEDS AT 120ML 5-6 TIMES A DAY ADVANCE ONCE HE IS TOLLERATING THOSE. PT IAS D5 1/2 NS RUNNING AT 100 ML/HR. SPEECH GARBLED AND SLURRED AT TIMES. ANSWERS MOST QUESTIONS APPROPRIATELY. PT IN BED, CALL LIGHT IN REACH NO S&S OF DISTRESS NOTED.
[2023-01-28 07:12] VITALS: BP 118/64
--- NOTE | 2023-01-28 10:01 | NUR ---
ASSUMED CARE OF PT AT 0700, FEEDING RUNNING AT 55ML/HR, D5/2NS RUNNING AT 100 ML/HR. PT AMBULATED WITH NURSE ASSISTANCE TO BATHROOM. PT LEFT IN A POSITION OF SAFETY AND COMFORT WITH BED ALARM SEURED, BED LOCKED AND IN LOW POSITION, AND CALL LIGHT WITHIN REACH.
--- NOTE | 2023-01-28 10:03 | NUR ---
STARTED PT ON BOLUS FEEDINGS AT 120 ML PER FEEDING Q4 HOURS. PT TOLERATED PROCEDURE WELL. DOCUSATE SODIUM GIVEN PT FOR BOWEL CARE. PT FAMILY AT BEDSIDE. PT LEFT IN A STATE OF SFETY.
--- NOTE | 2023-01-28 14:35 | NUR ---
ADMINISTERED 120 M BOLUS FEEDING VIA PEG TUBE AT 1330, PT TOLERATED INTERVENTION WELL. DCED IV FLUIDS PER PHYSICIAN ORDER, IV SALINE LOCKED.
[2023-01-28 15:59] VITALS: BP 138/75
[2023-01-28 16:00] VITALS: BP 132/79
--- NOTE | 2023-01-28 17:36 | NUR ---
SCHEDULED 120ML ENTERAL FEEDING ADMINISTERED TO PT VIA PEG TUBE, PT TOLERATED INTERVENTION WELL.
--- NOTE | 2023-01-28 17:53 | NUR ---
SHIFT SUMMARY PT TOLERATED BOLUS ENTERAL FEEDINGS WELL. PT A&O TO SELF. PLEASANTLY CONFUSED BUT EASILY REORIENTED. PT USES CALL LIGHT APPROPRIATELY FOR ASSISTANCE. AMBULATES TO BR WITH MINIMAL ASSISTANCE. POLST COMPLETED AND IN PT CHART. IV FLUIDS DCED PER PHYSICIANS ORDER. CALL NUNEZ WITHIN REACH, BED ALARM ACTIVATED, PATIENT LEFT IN POSITION OF SAFETY AND COMFORT.
[2023-01-28 20:06] VITALS: BP 136/77
--- NOTE | 2023-01-28 21:51 | NUR ---
TUBE FEEDING- PT SEEMS TO BE TOLLERATING TUBE FEEDS WELL. RESIDUAL WAS 0ML PRIOR TO 2130 FEEDING.
[2023-01-29] VITALS (12 sets, daily range): BP systolic 118–145; BP diastolic 71–83
--- NOTE | 2023-01-29 02:38 | NUR ---
CALLED NIGHT HOSPITALIST- PT HAS BEEN AMBULATING 1P SBA, HE GO TO THE EOB BUT WAS UNABLE TO FOLLOW ANY INSTRUCTIONS. HE IS NOT VERBALIZING ANYTHING AT THIS TIME. HE HAS HAD EXPRESSIVE APHASIA THAT CAUSES WORD SALAD AT TIMES. CURRENTLY HE IS NOT ABLE TO FORM ANY WORDS, SOME SMALL MOANS. PT WAS ASSISTED BACK TO BED, ATTENDS CHANGE PERFPRMED HE HAD AN EPISODE OF INCONTINENCE (HE HAS BEEN CONTINENT). HE IS GRABBING THE BACK OF HIS HEAD AND STARING BLINDLY. CALLED DR GARCIA THIS IA A CHANGE FROM PREVIOUS. RECIEVED ORDER FOR BG CHECK NOW, RESULT 132. AND A STAT HEAD CT, PT BEING TRANSFERED TO TRANSPORT [facility] NOW.
--- NOTE | 2023-01-29 03:13 | NUR ---
PT RETURNED FROM CT- PT STILL STARING BLINDLY. HE BEGAN TO HAVE SONOROUS BREATHING ON THE TRANSPORT BACK FROM CT. TRANSFERED BACK TO HIS BED, HOB ELEVATED AND SONOROUS BREATHING IMPROVED. PT BEGAN GRABBING THE BACK OF HIS HEAD AGAIN. A FEW MINUTES LATER WHEN STAFF WALKED IN THE ROOM, PT LOOKED AT THEM AND HIS EYES TRACKED THEM FOR A MOMENT. WHEN STAFF SPEAK TO HIM HE STARES AT THEM AND SHRUGGS A SHOULDER. SO MAYBE A LITTLE MORE RESPONSIVE THAN DURRING THE EVENT.
--- NOTE | 2023-01-29 03:18 | NUR ---
CALLED DR GARCIA- PT HEAD CT COMPLETD AND PT RETURNED TO HIS ROOM. DR SANTIAGO AND WILL COME TO THE BEDSIDE TO ASSESS THE PT SHORTLY.
--- NOTE | 2023-01-29 03:36 | NUR ---
RECIEVED A CALL FROM DR GARCIA- PT CT SCAN CAME BACK AND SHOWS CHANGES, PT TRANSFERING TO ICU 2. DR GARCIA REQUESTED IMMAGING TO BE PUSHED TO [facility] STAT. TELEPHONE REPORT COMPLETED WITH ESCROW CLOSER ADRY.
--- NOTE | 2023-01-29 04:04 | NUR ---
ASSUMED CARE OF PATIENT. TRANSFER FROM MEDICAL FLOOR AFTER THE PATIENT WAS VISUALIZED TO BE GRABBING THE BACK OF HIS HEAD AND STARING FORWARD BLINDLY. STAT HEAD CT WAS ORDERED AND OBTAINED, SHOWING CHANGES PER PREVIOUS NURSE NOTE. DR. GARCIA REQUESTED IMAGING BE PUSHED TO [facility] STAT, AND WE ARE AWAITING FURTHER INSTRUCTION AT THIS TIME. DURING ADMISSION INTO ICU, PATIENT VERBALIZED "OKAY" AND "SURE" AND "SOUNDS GOOD", DO CERTAIN QUESTIONS BUT WHEN ASKED IF HE WAS HAVING ANY PAIN HE WENT BACK TO NONVERBAL COMMUNICATION AND SHOOK HIS HEAD "NO". I ASKED THE PATIENT WHY HE WAS GRABBING THE BACK OF HIS HEAD, AND HE SHOOK HIS HEAD "NO" AGAIN. I ASKED IF THIS WAS JUST COMFORTABLE FOR HIM, AND HE SHOOK HIS HEAD "YES". CALL LIGHT WITHIN REACH. WILL AWAIT FURTHER ORDERS.
[2023-01-29 06:31] LABS: Albumin, Blood 3.1 g/dL (3.4-5.0); Albumin/Globulin Ratio 1.1 (0.8-1.8); Bilirubin, Total 1.3 mg/dL (0.1-1.0); Bun/Creatinine Ratio 14.7 (12.0-20.0); Calcium, Blood 8.5 mg/dL (8.5-10.1); Creatinine, Blood 0.68 mg/dL (0.60-1.20); Globulin, Blood 2.9 g/dL (2.2-4.0); Potassium, Blood 3.5 mmol/L (3.5-5.5)
[2023-01-29 06:45] LABS: BASOPHILS ABSOLUTE AUTO 0.01 K/mm3 (0.00-0.23); BASOPHILS PERCENT AUTO 0 % (0-2); EOSINOPHILS ABSOLUTE AUTO 0.09 K/mm3 (0.00-0.68); EOSINOPHILS PERCENT AUTO 2 % (0-6); Hematocrit 35.1 % (37.0-53.0); IMMATURE GRAN ABSOLUTE AUTO 0.02 K/mm3 (0.00-0.10); IMMATURE GRAN PERCENT AUTO 0 % (0-1); LYMPHOCYTES ABSOLUTE AUTO 0.66 K/mm3 (0.84-5.20); LYMPHOCYTES PERCENT AUTO 13 % (21-46); MONOCYTES ABSOLUTE AUTO 0.73 K/mm3 (0.16-1.47); MONOCYTES PERCENT AUTO 15 % (4-13); Mean Corpuscular Volume 91 fL (80-100); Mean Platelet Volume 9.4 fL (9.1-12.4); NEUTROPHILS ABSOLUTE AUTO 3.46 K/mm3 (1.96-9.15); NEUTROPHILS PERCENT AUTO 70 % (41-73); Platelet Count 169 K/mm3 (150-400); RDW Coefficient Variation 14.3 % (11.7-14.2); RDW Standard Deviation 47.5 fL (35.1-46.3); Red Blood Cell Count 3.86 M/mm3 (4.30-5.90); White Blood Cell Count 4.97 K/mm3 (4.00-11.30)
[2023-01-29 06:47] LABS: Hemoglobin 13.2 g/dL (13.5-17.5); Mean Corpuscular HGB 33.5 pg (26.0-34.0); Mean Corpuscular HGB Conc 37.1 g/dL (31.5-36.5)
--- NOTE | 2023-01-29 12:49 | NUR ---
REASSESSMENT PT CONTINUES TO BE ALERT. HE SPEAKS MINIMALLY, MOSTLY JUST TO SAY YES, NO OR THANK YOU. WHEN HE TRIES TO SAY OTHER THINGS IT IS VERY QUIET AND MUMBLED. HE IS HAVING A LOT OF TROUBLE GETTING THE RIGHT WORDS OUT. HE ATTEMPTED TO WRITE INSTEAD, BUT HIS WRITING, ALTHOUGH LEGIBLE, DIDN'T MAKE SENSE EITHER. HIS UPPER AND LOWER EXTREMITY STRENGTH IS STRONG AND EQUAL. HIS LUNGS ARE CLEAR, RA. SR IN THE 60S AND 70S WITH PAC. BP STABLE. INCONTINENT OF URINE, ATTENDS ON. PT IS ABLE TO STAND AT THE BEDSIDE TO TRY AND VOID, BUT SO FAR HAS BEEN UNABLE TO ACTUALLY VOID IN THE URINAL. PT'S FAMILY HAS SPOKEN WITH DR. MOORE AND STATES THEY WANT PT TRANSFERRED. [facility], [facility], [facility] AND [facility] HAVE ALL BEEN CALLED AND DON'T HAVE ANY BEDS AVAILABLE. PT'S FAMILY HAS DECIDED THEN THAT THEY WANT TO TAKE PT AMA AND TRANSPORT HIM THEMSELVES UP TO [facility]. RISKS DISCUSSED WITH THEM, BUT THEY STILL WANT TO.
--- NOTE | 2023-01-29 13:10 | NUR ---
JA PT'S HERE TO SIGN PT OUT. DR. MOORE INFORMED. RISKS DISCUSSED WITH PT'S ONCE AGAIN AND SHE STATES SHE UNDERSTANDS THE RISKS. IV REMOVED. PT DISCHARGED VIA WC.
== END 2023-01-29 13:15 | disposition left against medical advice (07) | DRG 64 ==
LOC: ER 15:21 → ICUE 15:22 → MEDS 22:48 → ICUE 22:49 → MEDS 01-23 17:45 → ICUE 01-29 04:08
PROVIDERS: Family Medicine; Hospitalist; Student in an Organized Health Care Education/Training Program; Surgery; ADMIT Internal Medicine
PROC: 0DH64UZ Insertion of Feeding Device into Stomach, Percutaneous Endoscopic Approach (ICD-10-PCS; principal; 2023-01-26 15:00)
DX: I63.512 Cerebral infarction due to unspecified occlusion or stenosis of left middle cerebral artery (principal); G93.6 Cerebral edema; I61.9 Nontraumatic intracerebral hemorrhage, unspecified; G93.49 Other encephalopathy; R47.01 Aphasia; E78.5 Hyperlipidemia, unspecified; N40.0 Benign prostatic hyperplasia without lower urinary tract symptoms; I10 Essential (primary) hypertension; M19.90 Unspecified osteoarthritis, unspecified site; R48.2 Apraxia; R56.9 Unspecified convulsions; R47.81 Slurred speech; R47.1 Dysarthria and anarthria; R13.12 Dysphagia, oropharyngeal phase; Z53.29 Procedure and treatment not carried out because of patient's decision for other reasons; Z79.02 Long term (current) use of antithrombotics/antiplatelets; Z79.2 Long term (current) use of antibiotics; Z86.73 Personal history of transient ischemic attack (TIA), and cerebral infarction without residual deficits; Z79.899 Other long term (current) drug therapy; Z90.89 Acquired absence of other organs; Z88.8 Allergy status to other drugs, medicaments and biological substances; Z90.79 Acquired absence of other genital organ(s); Z98.890 Other specified postprocedural states; Z98.52 Vasectomy status
CPT/HCPCS: 36415; 70450; 70544; 70551; 71045; 74230; 80048; 80053; 82947; 83735; 84100; 85025; 85610; 92523; 92526; 92610; 92611; 93005; 93010; 93246; 93971; 96374; 97110; 97116; 97161; 97166; 97530; 97535; 99285-25; A9270; J0360; J0690; J1953; J2001; J2405; J2704; J7030; J7042; J7120